=== PATIENT | male | born 1990 | race Caucasian/White ===

== ENCOUNTER 2023-11-22 13:11 | Emergency (ER) | payer SELFPAY ==
--- OUTSIDE RECORDS SUMMARY | 2023-11-22 13:16 | XMS REPORT | Continuity of Care Document ---
Author Name Unknown Address [address] [facility] [address] [place] [address] [facility] thconnect Address [address] [facility] 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 Role Phone PCP, PATIENT DOES NOT HAVE A Primary Care Physic avis Unavailable Adalberto Fagan DO Attending Clinician [phone] ADALBERTO FAGAN Attending Clinician Unavailable Doctor Unassigned, [place] Attending Clinician U Elizabeth Pollock DO Attending Clinician [phone] Vanessa ARELLANO, Linda Azevedo Attending Clinician Unavailable Bettina_Maureen Attending Clinician Unavailable ADALBERTO FAGAN Admitting Clinician Unavailable Antwon Admitting Clinician Unavailable Problems Condition Name Condition Details Condition Category Status Onset Date Resolution Date Last Treatment Date Treating Clinician Comments Source 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 11-05 00:00: 00 Overview: ICD10 Diagnosis Term 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 Utility [facility] Allergies, Adverse Reactions, Alerts Allergy Name Allergy Type Status Severity Reaction(s) Onset Date Inactive Date Treating Clinician Comments Source QUETIAPI NE FUMARATE DRUG INGREDI Active Unknown-Cmnt 11-05 00:00: 00 [facility] NO KNOWN ALLERGIE S Drug Class Active [facility] Social History Social Habit Start Date Stop Date Quantity Comments Source Sex Assigned At [facility] Exposure to SARS-CoV-2 (event) Not sure [facility] Smoking Status Start Date Stop Date Source Unknown if ever smoked [facility] Medications Ordered Medication Name Filled Medication Name Start Date Stop Date Current Medication? Ordering Clinician Indication Dosage Frequency Signature (SIG) Comments Components Source naproxen sodium (ANAPROX DS) 550 mg tablet 06-26 00:00: 00 Yes [id number] 550mg Take 1 tablet by mouth 2 (two) times daily with meals. [facility] No known medications No Un singh [facility] No known medications No Un singh [facility] Vital Signs Vital Name Observation Time Observation Value Comments S our Systolic blood pressure 2020-06-26 18:05:00 121 mm[Hg] [facility] Diastolic blood pressure 2020-06-26 18:05:00 80 mm[Hg] [facility] Heart rate 2020-06-26 18:05:00 84 /min [facility] Body temperature 2020-06-26 18:05:[address] [facility] Respiratory rate 2020-06-26 18:05:00 18 /min [facility] Body height 2020-06-26 18:05:00 182.9 cm [facility] Body weight 2020-06-26 18:05:00 77.111 kg [facility] BMI 2020-06-26 18:05:00 23.06 kg/m2 [facility] Oxygen saturation in Arterial blood by Pulse oximetry 2020-06-26 18:05:00 98 /min [facility] Systolic blood pressure 2020-01-17 14:08:00 124 mm[Hg] [facility] Diastolic blood pressure 2020-01-17 14:08:00 87 mm[Hg] [facility] Heart rate 2020-01-17 14:08:00 72 /min [facility] Body temperature 2020-01-17 14:08:[address] [facility] Respiratory rate 2020-01-17 14:08:00 18 /min [facility] Body height 2020-01-17 14:08:00 182.9 cm [facility] Body weight 2020-01-17 14:08:00 77.111 kg [facility] BMI 2020-01-17 14:08:00 23.06 kg/m2 [facility] Oxygen saturation in Arterial blood by Pulse oximetry 2020-01-17 14:08:00 97 /min [facility] Procedures Procedure Date / Time Performed Performing Clinicia n Source XR HAND <3 VW LEFT 2020-06-26 18:35:[address] [facility] NOTICE OF PRIVACY PRACTICES 2020-06-26 17:50:50 Doctor Unassigned, [place] [facility] CONSENT/REFUSAL FOR DIAGNOSIS AND TREATMENT 2020-06-26 17:50:36 Doctor Unassigned, [place] [facility] NOTICE OF PRIVACY PRACTICES 2020-01-17 14:02:35 Doctor Unassigned, [place] [facility] CONSENT/REFUSAL FOR DIAGNOSIS AND TREATMENT 2020-01-17 14:02:21 Doctor Unassigned, [place] [facility] Encounters Start Date/Time End Date/Time Encounter Type Admission Type Attending [facility] Care Department Encounter ID Source 2020-06-26 12:07:00 2020-06-26 12:56:00 Emergency Adalberto Fagan [facility] [id number] [facility] 2020-06-26 12:07:00 2020-06-26 12:56:00 Emergency X ADALBERTO FAGAN [facility] [id number] [facility] 2020-06-26 00:00:00 2020-06-26 00:00:00 Orders Only Doctor Unassigned, [place] [facility] 1..840.114 [id number] [facility] 2020-01-17 09:16:00 2020-01-17 09:28:00 Emergency Elizabeth Arellano [facility] 1..840.114 [id number] [facility] 2020-01-17 09:01:00 2020-01-17 09:01:00 Emergency X [facility] [id number] [facility] 2020-01-17 00:00:00 2020-01-17 00:00:00 Telephone Linda Mendez [facility] [id number] [facility] 2019-07-30 11:26:00 2019-07-30 11:26:00 Outpatient Raju_P [facility] [id number] [facility] Results Test Description Test Time Test Comments Results Resul t Comments Source XR HAND <3 VW LEFT 2020-06-26 18:41:42 HISTORY: Hand injury second MCP. FINDINGS: AP, lateral, oblique views of left hand showed no acute fractureor dislocation. No significant changes of arthritis or aggressive bonelesions seen. CONCLUSIONS: No acute fracture or dislocation in left hand. [facility] Results Inft User - 06/26/2020 12:42 PM CSTHISTORY: Hand injury second MCP.FINDINGS: AP, lateral, oblique views of left hand showed no acute fractureor dislocation. No significant changes of arthritis or aggressive bonelesions seen.CONCLUSIONS : No acute fracture or dislocation in left hand. [facility]
[2023-11-22] MEDS ORDERED: KETOROLAC 30 MG/ML INJ ONE (13:45)
[2023-11-22] MEDS ORDERED: FENTANYL CITR 100 MCG/2 ML ONE (13:45)
[2023-11-22] MEDS ORDERED: dexAMETHasone 10 MG/ML VIAL ONE (13:45)
[2023-11-22 14:38] LABS: Specific Gravity 1.021 (1.005-1.030); Sqamous Epithelial <5 /HPF (None Seen); Urine Bacteria None Seen /HPF (<20); Urine Bilirubin NEGATIVE (Negative); Urine Blood Negative (Negative); Urine Clarity Turbid (Clear); Urine Color Light-Yellow (Yellow); Urine Crystals Unidentified Few /HPF (None Seen); Urine Culture Reflex Order NOT NEEDED; Urine Glucose NEGATIVE (Negative); Urine Ketones 1+ (Negative); Urine Micro Reflex YN NO BILL MICROSCOPIC; Urine Mucus Slight /HPF (None Seen); Urine Nitrite NEGATIVE (Negative); Urine Protein NEGATIVE (Negative); Urine RBC <5 /HPF (None Seen); Urine Urobilinogen Normal (Normal); Urine WBC <5 /HPF (<5); Urine Yeast (Budding) Trace /HPF (None Seen)
--- NOTE | 2023-11-22 16:06 | RAD REPORT ---
EXAM DESCRIPTION: CT - Spine Lumbar Wo Con - 11/22/2023 2:05 pm CLINICAL HISTORY: PAIN COMPARISON: No comparisons TECHNIQUE: Axial noncontrast CT imaging of the lumbar spine was performed with coronal and sagittal re-formatted images. All CT scans are performed using dose optimization technique as appropriate and may include automated exposure control or mA/KV adjustment according to patient size. FINDINGS: No acute lumbar spine fracture seen. No aggressive marrow pattern or malalignment. Paraspinal tissues are normal in thickness. No paraspinal abscess or hematoma seen. Intervertebral disc disease assessment is inherently limited by CT. Within these limitations, no high -grade canal stenosis suspected. Broad-based posterior disc bulge is present at L4-5. Endplate remod eling most notably at L4-5 and L5-S1, contributing to mild degrees of bony canal stenosis bilaterally . IMPRESSION: No acute fracture or subluxation. Broad-based posterior disc bulge at L4-5. Bilateral neural foraminal narrowing at L4-5 and L5-S1. Ple ase consider MRI follow-up for assessment of disc disease if clinically desired.
--- NOTE | 2023-11-22 16:17 | EDPHYS ---
Physician Documentation [facility] Name: Eric De La Garza Age: 33 yrs Sex: Male : 1990 Arrival Date: 11/22/2023 Time: 13:11 Bed 11 Private MD: Ethan Thao HPI: 11/21 13:45 This 33 yrs old Male presents to ER via Ambulatory with complaints of Pain. cp 13:45 The patient presents with pain that is acute, with no known mechanism of injury. The cp symptoms are located in the low back. Onset: The symptoms/episode began/occurred 1 month(s) ago. The pain radiates to the right leg. Associated signs and symptoms: Pertinent negatives: abdominal pain, constipation, fever, hematuria, incontinence, numbness, urinary retention, weakness. The problem was sustained from unknown cause. Modifying factors: the patient symptoms are aggravated by any movement, standing, walking. Historical: - Allergies: 13:29 No Known Allergies; me1 - PMHx: 13:29 GERD; me1 - PSHx: 13:29 None; me1 - Immunization history:: Adult Immunizations up to date. - Infectious Disease History:: Denies. - Social history:: Smoking status: Patient reports the use of cigarette tobacco products, smokes one pack cigarettes per day. ROS: 13:50 Back: Positive for pain at rest, pain with movement, of the low back, Negative for cp injury or acute deformity, 13:50 Respiratory: Negative for cough, shortness of breath, wheezing, cp 13:50 Abdomen/GI: Negative for abdominal pain, vomiting, diarrhea, constipation, bowel incontinence, 13:50 Constitutional: Negative for body aches, chills, fever, weight loss, cp 13:50 : Negative for urinary symptoms, bladder incontinence, 13:50 Neuro: Negative for numbness, tingling, weakness, 13:50 All other systems are negative, Exam: 13:55 Constitutional: The patient appears in no acute distress, alert, awake, non-toxic, well cp developed, well nourished, uncomfortable, 13:55 Head/Face: Normocephalic, atraumatic. cp 13:55 Chest/axilla: Inspection: normal, 13:55 Cardiovascular: Rate: normal, Rhythm: regular, Edema: is not appreciated, 13:55 Respiratory: the patient does not display signs of respiratory distress, Respirations: normal, no use of accessory muscles, no retractions, labored breathing, is not present, Breath sounds: are clear throughout, no decreased breath sounds, no stridor, no wheezing, 13:55 Abdomen/GI: Inspection: abdomen appears normal, Palpation: abdomen is soft and non-tender, in all quadrants, 13:55 Back: pain, that is moderate, of the lumbar area and right low back, ROM is painful, with all movement, 13:55 Neuro: Orientation: to person, place \T\ time. Mentation: is normal, Motor: moves all fours, strength is normal, Sensation: is normal, Gait: is steady, Deep tendon reflexes are 2+ (normal) in the right patellar, right Achilles, left patellar and left Achilles, Vital Signs: 13:27 BP 108 / 78; Pulse 84; Resp 16; Temp 97.9; Pulse Ox 99% on R/A; Weight 79.38 kg; Height me1 5 ft. 11 in. ; Pain 9/10; 16:32 BP 110 / 74; Pulse 74; Resp 16; Pulse Ox 100% on R/A; mb9 13:27 Body Mass Index 24.41 (79.38 kg, 180.34 cm) me1 13:27 Pain Scale: Adult me1 MDM: 13:33 Patient medically screened. 14:00 Differential diagnosis: Cholelithiasis chronic back pain, Pyelonephritis spinal injury, cp Ureterolithiasis vertebral fracture, sciatica. 16:16 Data reviewed: vital signs, nurses notes, lab test result(s), radiologic studies, CT cp scan, and as a result, I will discharge patient. 16:16 I considered the following discharge prescriptions or medication management in the emergency department Medications were administered in the Emergency Department. See MAR. Counseling: I had a detailed discussion with the patient and/or guardian regarding the historical points, exam findings, and any diagnostic results supporting the discharge/admit diagnosis, lab results, radiology results, the need for outpatient follow up, a family practitioner, to return to the emergency department if symptoms worsen or persist or if there are any questions or concerns that arise at home. Response to treatment: the patient's symptoms have markedly improved after treatment, and as a result, I will discharge patient. 11/21 13:45 Order name: Urinalysis W/Microscopic; Complete Time: 14:41 cp 11/21 14:41 Interpretation: Normal except: [facility] Turbid; UKET 1+; BYST Trace. 11/21 13:45 Order name: CT Lumbar Spine Wo Con; Complete Time: 16:10 11/21 16:11 Interpretation: Report reviewed. cp Administered Medications: 13:52 Drug: Ketorolac IM 30 mg IM once Route: IM; Site: left deltoid; mb9 14:55 Follow up: Response: No adverse reaction mb9 13:52 Drug: Dexamethasone IM 10 mg IM once Route: IM; Site: right gluteus; mb9 14:55 Follow up: Response: No adverse reaction mb9 13:52 Drug: fentaNYL (PF) IM 50 mcg IM once Route: IM; Site: right deltoid; mb9 14:55 Follow up: Response: No adverse reaction mb9 Disposition Summary: 11/22/23 16:17 Discharge Ordered Notes: Location: Home cp Problem: an ongoing problem cp Symptoms: have improved cp Condition: Stable cp Diagnosis - Lumbago with sciatica, right side cp Followup: cp - With: Private Physician - When: 2 - 3 days - Reason: Recheck today's complaints Discharge Instructions: - Discharge Summary Sheet cp - Sciatica cp - Back Exercises cp Forms: - Medication Reconciliation Form cp - Antibiotic Education cp - Prescription Opioid Use cp - Patient Portal Instructions cp - Leadership Thank You Letter cp Prescriptions: - Diclofenac Sodium 75 mg Oral tablet, delayed release (enteric coated) - take 1 tablet ORAL route 2 times per day; 20 tablet; Refills: 0, Product cp Selection Permitted - Medrol (Barrett) 4 mg Oral Tablets, Dose Pack - take 1 tablet ORAL route as directed - follow package instructions; 1 packet; cp Refills: 0, Product Selection Permitted - methocarbamol 750 mg Oral tablet - take 1 tablet ORAL route 3 times per day; 30 tablet; Refills: 0, Product cp Selection Permitted Addendum: 11/26/2023 05:06 Co-signature as Attending Physician, Ethan Mas MD I agree with the assessment and c [place] plan of care. Signatures: Dispatcher [employer] Ethan Reddy MD MD cha Page, Corey, PA PA cp Amparo Wright RN RN mb9 Yanely Johnson RN RN me1 Corrections: (The following items were deleted from the chart) 11/22 14:07 11/21 13:50 Abdomen/GI: Negative for abdominal pain, vomiting, diarrhea, constipation, cp cp
--- NOTE | 2023-11-22 16:17 | ER ---
Nurse's Notes [facility] Name: Eric De La Garza Age: 33 yrs Sex: Male : 1990 Arrival Date: 11/22/2023 Time: 13:11 Bed 11 Private MD: Diagnosis: Lumbago with sciatica, right side Presentation: 11/21 13:27 Chief complaint: Patient states: c/o lower back pain that shoots down the back of the me1 right leg with muscle spasms at times, Started about 1 month ago and has worsened. Hx of sciatica. Coronavirus screen: Vaccine status: Patient reports being unvaccinated. Ebola Screen: No symptoms or risks identified at this time. Initial Sepsis Screen: Does the patient meet any 2 criteria? No. Patient's initial sepsis screen is negative. Risk Assessment: Do you want to hurt yourself or someone else? Patient reports no desire to harm self or others. Onset of symptoms is unknown. 13:27 Method Of Arrival: Ambulatory [facility] 13:27 Acuity: KAREEM 4 [facility] 13:33 Initial Sepsis Screen: Does the patient have a suspected source of infection? No. mb9 Patient's initial sepsis screen is negative. Triage Assessment: 13:29 General: Appears uncomfortable, well developed, well nourished, Behavior is calm, me1 cooperative, appropriate for age. Pain: Complains of pain in right low back Pain radiates to right leg. Neuro: Level of Consciousness is awake, alert, obeys commands, Oriented to person, place, time, situation, Appropriate for age. Cardiovascular: Capillary refill < 3 seconds Patient's skin is warm and dry. Respiratory: Airway is patent Trachea midline Respiratory effort is even, unlabored, Respiratory pattern is regular, symmetrical. Derm: Skin is intact, is healthy with good turgor, Skin is pink, warm \T\ dry. Musculoskeletal: Reports pain in right low back. Historical: - Allergies: 13:29 No Known Allergies; me1 - PMHx: 13:29 GERD; me1 - PSHx: 13:29 None; me1 - Immunization history:: Adult Immunizations up to date. - Infectious Disease History:: Denies. - Social history:: Smoking status: Patient reports the use of cigarette tobacco products, smokes one pack cigarettes per day. Screenin:32 [facility] ED Fall Risk Assessment (Adult) History of falling in the last 3 months, mb9 including since admission No falls in past 3 months (0 pts) Confusion or Disorientation No (0 pts) Intoxicated or Sedated No (0 pts) Impaired Gait No (0 pts) Mobility Assist Device Used No (0 pt) Altered Elimination No (0 pt) Score/Fall Risk Level 0 - 2 = Low Risk Oriented to surroundings, Maintained a safe environment, Educated pt \T\ family on fall prevention, incl call for assistance when getting out of bed. Abuse screen: Denies threats or abuse. Nutritional screening: No deficits noted. Tuberculosis screening: No symptoms or risk factors identified. Assessment: 13:44 General: Appears in no apparent distress. Pain: Complains of pain in back Pain radiates mb9 to right leg and right low back Quality of pain is described as sharp, shooting, throbbing. Neuro: Mahoney Agitation-Sedation Scale (RASS): 0 - Alert and Calm Level of Consciousness is awake, alert, obeys commands, Oriented to person, place, time, situation, Appropriate for age. Cardiovascular: Patient's skin is warm and dry. Respiratory: Airway is patent Respiratory effort is even, unlabored, Respiratory pattern is regular, symmetrical. GI: No signs and/or symptoms were reported involving the gastrointestinal system. : No signs and/or symptoms were reported regarding the genitourinary system. EENT: No signs and/or symptoms were reported regarding the EENT system. Derm: Skin is pink, warm \T\ dry. Musculoskeletal: Range of motion: intact in all extremities. Vital Signs: 13:27 BP 108 / 78; Pulse 84; Resp 16; Temp 97.9; Pulse Ox 99% on R/A; Weight 79.38 kg; Height me1 5 ft. 11 in. ; Pain 9/10; 16:32 BP 110 / 74; Pulse 74; Resp 16; Pulse Ox 100% on R/A; mb9 13:27 Body Mass Index 24.41 (79.38 kg, 180.34 cm) me1 13:27 Pain Scale: Adult nv1 ED Course: 13:15 Patient arrived in ED. mg5 13:18 Ethan Dominguez PA is PHCP. cp 13:18 Ethan Mas MD is Attending Physician. cp 13:29 Triage completed. me1 13:29 Arm band placed on right wrist. Patient placed in an exam room. me1 13:32 Amparo Wright, RN is Primary Nurse. mb9 13:33 Bed in low position. Call light in reach. Side rails up X 1. Provided Education on: mb9 press call light if needing anything. Client placed on continuous cardiac and pulse oximetry monitoring. NIBP monitoring applied. 13:45 No provider procedures requiring assistance completed. mb9 14:07 CT Lumbar Spine Wo Con In Process Unspecified. EDMS 16:33 Patient did not have IV access during this emergency room visit. mb9 Administered Medications: 13:52 Drug: Ketorolac IM 30 mg IM once Route: IM; Site: left deltoid; mb9 14:55 Follow up: Response: No adverse reaction mb9 13:52 Drug: Dexamethasone IM 10 mg IM once Route: IM; Site: right gluteus; mb9 14:55 Follow up: Response: No adverse reaction mb9 13:52 Drug: fentaNYL (PF) IM 50 mcg IM once Route: IM; Site: right deltoid; mb9 14:55 Follow up: Response: No adverse reaction mb9 Medication: 13:33 VIS not applicable for this client. mb9 Outcome: 16:17 Discharge ordered by MD. cp 16:33 Discharged to home ambulatory, mb9 16:33 Condition: stable 16:33 Discharge instructions given to patient, Instructed on discharge instructions, follow up and referral plans. Demonstrated understanding of instructions, follow-up care, medications, Prescriptions given X 3, 16:33 Patient left the ED. mb9 Signatures: Dispatcher [employer] [facility] Ethan Dominguez PA PA cp Amparo Wright, ADAN RN Yanely Prajapati RN RN [facility] Erin Donovan mg5
[2023-11-24 17:34] VITALS: BP 110/74; TEMP 97.9; O2SAT 100
== END 2023-11-22 16:33 | disposition home or self-care (01) ==
LOC: ER 13:11
DX: M54.41 Lumbago with sciatica, right side (principal); F17.210 Nicotine dependence, cigarettes, uncomplicated
CPT/HCPCS: 72131; 81001; 96372; 99284; J1100; J3010